=== PATIENT | female | born 1980 | race Caucasian/White ===

== ENCOUNTER 2019-08-11 20:33 | Emergency (ER) | payer OTHER ==
[2019-08-11] MEDS ORDERED: predniSONE 10 MG TAB PO ONE (21:09)
[2019-08-11] MEDS ORDERED: IBUPROFEN 200 MG TAB PO ONE (21:09)
--- NOTE | 2019-08-11 21:12 | ED.PDOC ---
History of Present Illness - General Time Seen by Provider: 08/11/19 21:03 Additional Information: Patient is a 39-year-old female who presents to the ED with chief complaint of right earache and sore throat. Symptoms have been going on for approximately 3 days and are unimproved. Patient denies nausea, vomiting, fever, chills. Patient indicates as a child she had issues with otitis media but not since. Patient is able to eat and drink without difficulty and because her throat scratchy. Patient denies cough, chest pain, or shortness of breath. Patient is otherwise asymptomatic. - History of Present Illness Home Medications: Ambulatory Orders Amoxicillin 500 mg PO TID #21 tab 08/11/19 Ibuprofen [Motrin] 600 mg PO Q6H PRN #20 tab 08/11/19 Review of Systems - Review of Systems Constitutional: Denies: chills, fever EENTM: States: see HPI, ear pain, throat pain. Denies: ear discharge, nose rober n, nose congestion Respiratory: States: no symptoms reported. Denies: cough, short of breath Cardiology: States: no symptoms reported. Denies: chest pain, palpitations Gastrointestinal/Abdominal: States: no symptoms reported. Denies: abdominal pain, nausea, vomiting Skin: States: no symptoms reported. Denies: rash All other Systems: Reviewed and Negative Physical Exam - Physical Exam General Appearance: Alert, Comfortable, No apparent distress, Well Developed, Well Nourished Ear Exam: right ear: TM red, left ear: TM normal Throat Exam: tonsillar exudate, other - Voice is normal, mild pharyngeal erythema, negative tonsillar edema. Neck: non-tender, full range of motion, supple, normal inspection, other - Negative lymphadenopathy Cardiovascular/Respiratory: regular rate, rhythm, no M/R/G, normal peripheral pulses Neurologic: no motor/sensory deficits, alert, normal mood/affect Skin Exam: normal color, warm/dry Progress - Progress Progress: 08/11/19 21:13 Patient clinically with otitis media and tonsillitis. Will give steroids and NSAIDs in the ED and DC with amoxicillin and NSAIDs and patient to rest and follow-up with her PCP. Vital signs stable, patient is NAD and appears clinically well, there is no indication for formal ED work-up today. Return to ED instructions discussed with patient. Patient voices willingness to comply with discharge plan and follow-up with her PCP as needed. Patient happy with plan. Departure - Departure Clinical Impression: Tonsillitis Otitis media Qualifiers: Otitis media type: unspecified Chronicity: acute Qualified Code(s): H66.90 - Otitis media, unspecified, unspecified ear Time of Disposition: 21:15 Disposition: Discharge to Home or Self Care Condition: Good Instructions: Sore Throat, Adult (DC), Serous Otitis Media (DC) Referrals: JOSE MCKEON MD [Active Staff] - 1 Week Prescriptions: Amoxicillin 500 mg PO TID #21 tab Ibuprofen [Motrin] 600 mg PO Q6H PRN #20 tab PRN Reason: Pain Home Medications: Ambulatory Orders Amoxicillin 500 mg PO TID #21 tab 08/11/19 Ibuprofen [Motrin] 600 mg PO Q6H PRN #20 tab 08/11/19
[2019-08-11 21:49] VITALS: TEMP 99; O2SAT 99
[2019-08-11 22:01] VITALS: BP 106/77
== END 2019-08-11 21:30 | disposition home or self-care (01) ==
LOC: ER 20:33
DX: J03.90 Acute tonsillitis, unspecified (principal); H66.91 Otitis media, unspecified, right ear